=== PATIENT | female | born 1965 | race Caucasian/White ===

== ENCOUNTER → 2017-01-16 | Outpatient (CLI) | payer OTHER ==
[~2017-01-16] VITALS: Ht 175.3 cm; Wt 68.1 kg
[~2017-01-16] MED LIST: LAMICTAL200 MG PO; LEXAPRO10 MG PO
== END | disposition home or self-care (01) ==
LOC: AMB 10:30
PROC: 0DJD8ZZ Inspection of Lower Intestinal Tract, Via Natural or Artificial Opening Endoscopic (ICD-10-PCS; principal; 2017-01-16)
DX: Z12.11 Encounter for screening for malignant neoplasm of colon (principal)
CPT/HCPCS: J2250